=== PATIENT | female | born 1995 | race Caucasian/White ===

== ENCOUNTER 2023-08-29 03:05 | Emergency (ER) | payer OTHER ==
[~2023-08-29] VITALS: Ht 157.5 cm; Wt 77.1 kg
[2023-08-29 04:32] VITALS: BP 110/67; TEMP 98.6; O2SAT 100
== END 2023-08-29 04:33 | disposition home or self-care (01) ==
LOC: ER 03:10
DX: S89.81XA Other specified injuries of right lower leg, initial encounter (principal); M25.561 Pain in right knee; W01.0XXA Fall on same level from slipping, tripping and stumbling without subsequent striking against object, initial encounter; Y93.89 Activity, other specified; Y92.89 Other specified places as the place of occurrence of the external cause; Y99.8 Other external cause status
CPT/HCPCS: 73564-TC